=== PATIENT | female | born 1955 | race Hispanic/Latino ===

== ENCOUNTER → 2021-10-20 | Day surgery (SDC) | payer MEDICARE ==
[2021-10-14 15:55] LABS: BASOPHILS % 0.5 % (0.0-1.0); EOSINOPHILS # (AUTO) 0.1 (0.0-0.4); EOSINOPHILS % 1.4 % (0.0-6.0); HEMATOCRIT 45.6 % (34.2-44.1); HEMOGLOBIN 14.2 g/dL (12.0-16.0); LYMPHOCYTES # (AUTO) 2.3 (1.0-3.2); LYMPHOCYTES % 35.3 % (18.0-39.1); MEAN CORPUSCULAR HEMOGLOBIN 29.6 pg (28-32); MEAN CORPUSCULAR HGB CONC 31.1 g/dL (31-35); MONOCYTES # (AUTO) 0.5 (0.2-0.8); MONOCYTES % 7.7 % (4.4-11.3); NEUTROPHILS # (AUTO) 3.6 (2.1-6.9); NEUTROPHILS % 54.9 % (38.7-80.0); PLATELET COUNT 240 x10e3/uL (140-360); RED CELL DISTRIBUTION WIDTH 13.4 % (11.7-14.4)
[~2021-10-20] MED LIST: ALBUTEROL0.63 MG/3 NEB; AMLODIPINE BESYL5 MG PO; ASPIRIN81 MG PO; ATORVASTATIN CA20 MG PO; BUSPIRONE HCL10 MG PO; CLOPIDOGREL75 MG PO; CYCLOBENZAPRINE10 MG PO; CYMBALTA30 MG PO; FENTANYL CITRATE/PF 100MCG/2 ML INJ ONE; FOLIC ACID0.4 MG PO; FUROSEMIDE40 MG PO; GENTAMICIN 80MG/NS 100 ML 0 ML IV ONE; HYDROCODONE-AC118 M1 PO; IOPAMIDOL 200 MG/ML 20 ML VIAL IT ONE; IOPAMIDOL 300MG/ML 50ML INFUS..BTL IV ONE; ISOSORBIDE MONO30 MG PO; LANSOPRAZOLE30 MG PO; LEVEMIR FL100 UNIT/1 SC; LEVOCETIRIZINE D5 MG PO; LIDOCAINE HCL 2% LOCAL INJ 5 ML SDV VIAL INJ ONE; LOSARTAN POTASS25 MG PO; MAGINEX61 MG PO; METFORMIN HCL500 MG PO; METOPROLOL SUCC50 MG PO; NEURONTIN300 MG PO; NITROFURANTOIN100 MG PO; NITROGLYCERIN0.4 MG SL; NOVOLOG100 UNIT/1 SC; ONDANSETRON HCL INJ 2MG/ML 2ML 2 MG/ML VIAL ONE; ONE A DAY WOMENS PO; POTASSIUM GLU2.5 MEQ PO; POVIDONE IODINE 0.05% 0.05 % ML PO ONE; PROPOFOL IV EMULSION 10 MG/ML 20 ML VIAL ONE; RANEXA1000 MG PO; SEVOFLURANE INHAL SOLN 250 ML PEN BTL ONE; SUCRALFATE1 GM PO; TRAZODONE HCL50 MG PO; VIT B COMPLEX PO; VITAMIN D350 MCG PEG
[2021-10-20 08:10] VITALS: BP 108/60
== END | disposition home or self-care (01) ==
LOC: OR 05:32
PROVIDERS: ATTEND Urology
DX: N39.0 Urinary tract infection, site not specified (principal); E66.01 Morbid (severe) obesity due to excess calories; N81.3 Complete uterovaginal prolapse; N95.2 Postmenopausal atrophic vaginitis; N32.89 Other specified disorders of bladder; I25.810 Atherosclerosis of coronary artery bypass graft(s) without angina pectoris; I11.0 Hypertensive heart disease with heart failure; I50.9 Heart failure, unspecified; I25.2 Old myocardial infarction; J44.9 Chronic obstructive pulmonary disease, unspecified; E11.9 Type 2 diabetes mellitus without complications; F41.9 Anxiety disorder, unspecified; M54.9 Dorsalgia, unspecified; Z01.810 Encounter for preprocedural cardiovascular examination; Z01.812 Encounter for preprocedural laboratory examination; Z01.818 Encounter for other preprocedural examination; Z99.81 Dependence on supplemental oxygen; Z79.02 Long term (current) use of antithrombotics/antiplatelets; Z79.82 Long term (current) use of aspirin; Z79.4 Long term (current) use of insulin; Z79.899 Other long term (current) drug therapy; Z86.73 Personal history of transient ischemic attack (TIA), and cerebral infarction without residual deficits; Z95.1 Presence of aortocoronary bypass graft; Z87.891 Personal history of nicotine dependence
CPT/HCPCS: 36415 ×2; 52005; 71046; 74420; 82948; 85025; 93005; C1758; J2001; J2405; J2704; J3010; Q9967; J1580